=== PATIENT | female | born 1970 | race Caucasian/White ===

== ENCOUNTER → 2022-11-18 | Outpatient (CLI) | payer OTHER ==
[2022-11-18 21:58] LABS: HCT 47.3 % (37.2-46.3); HGB 15.2 d/dL (12.0-15.0); MCH 32.7 pg (27.0-32.0); MCHC 32.1 d/dL (32.0-37.0); MCV 101.7 FL (80.0-97.0); Mean Platelet Volume 10.7 FL (9.5-12.2); NRBC Per 100 WBC 0 X 10*3/uL (0.00-0.01); Platelet Count 299 X 10*3/uL (140-440); RBC 4.65 X 10*6/uL (4.10-5.20); RDW 11.9 % (11.5-14.5); WBC 9.51 X 10*3/uL (4.50-10.00)
[2022-11-18 22:09] LABS: C Reactive Protein <0.30 mg/dL (0.00-0.80); Rheumatoid Factor, Qnt <15 IU/mL (0-15)
[2022-11-18 22:51] LABS: Erythrocyte Sedimentation Rate 17 mm/Hr (0-30)
[2022-11-19 11:09] LABS: HLA B27 NEGATIVE
== END | disposition home or self-care (01) ==
LOC: LABWHC1 12:12
PROVIDERS: ATTEND Orthopaedic Surgery
DX: M25.551 Pain in right hip (principal); M16.11 Unilateral primary osteoarthritis, right hip; M17.11 Unilateral primary osteoarthritis, right knee; M23.300 Other meniscus derangements, unspecified lateral meniscus, right knee
CPT/HCPCS: 36415; 84443; 85027; 85652; 86038; 86039; 86140; 86431; 86618; 86812